=== PATIENT | female | born 1965 | race African-American/Black ===

== ENCOUNTER 2016-08-31 22:45 | Emergency (ER) | payer SELFPAY ==
[~2016-08-31] VITALS: Ht 167.6 cm; Wt 70.3 kg
[2016-08-31 22:54] VITALS: BP 162/99
--- NOTE | 2016-08-31 22:54 | Emergency Room Report ---
History of Present Illness General Chief Complaint: Alcohol Intoxication Source: EMS Present Illness HPI This is a proximally 52-year-old female who came in as a Devika Valdez. She presents with alcohol intoxication. She was sleeping outside of a [employer]. Bystander called 911. Per EMS, she is familiar to them but they do not know her name. She's been sent to hospital for alcohol intoxication. To me she also familiar but I am under able to recall her name. Is no trauma. Unable to get any other history from the patient. Allergies: Coded Allergies: UNABLE TO ASSESS (Unverified , 08/31/16) Patient History Past Medical History: see triage record, old chart reviewed, unable to obtain Past Surgical History: unable to obtain Pertinent Family History: unable to obtain Social History: Reports: alcohol use Last Menstrual Period: UNK Now: No Immunizations: other Reviewed Nursing Documentation: PMH: Agreed, PSxH: Agreed Nursing Documentation-PMH Past Medical History Deferred: Pt Cognitively Impaired Past Medical History: Deferred Review of Systems ENT: Denies: ear pain, nose congestion, throat swelling Respiratory: Denies: cough, shortness of breath Cardiovascular: Denies: chest pain, palpitations Gastrointestinal: Denies: abdominal pain, diarrhea, nausea, vomiting Musculoskeletal: Denies: back pain, joint pain Skin: Denies: rash Neurological: Denies: headache, numbness Endocrine: Denies: increased thirst, increased urine Hematologic/Lymphatic: Denies: easy bruising All Other Systems: limited - The secondary to her intoxication Physical Exam Vital Signs Date Time Temp Pulse Resp B/P Pulse Ox O2 Delivery O2 Flow Rate FiO2 08/31/16 22:40 98.2 99 16 162/99 98 Room Air vitals show hypertension Sp02 EP Interpretation: reviewed, normal General Appearance: well appearing, no apparent distress, other - Sleeping Head: normocephalic, atraumatic Eyes: bilateral eye EOMI, bilateral eye PERRL ENT: hearing grossly normal, normal pharynx Neck: full range of motion, supple, no meningismus Respiratory: chest non-tender, lungs clear, normal breath sounds Cardiovascular #1: regular rate, rhythm, no murmur Gastrointestinal: normal bowel sounds, non tender, no mass, no organomegaly, no bruit, non-distended Musculoskeletal: back normal, normal range of motion Neurologic: grossly normal Psychiatric: mood/affect normal Skin: warm/dry Medical Decision Making Diagnostic Impression: Primary Impression: Acute alcoholic intoxication Qualified Codes: F10.120 - Alcohol abuse with intoxication, uncomplicated ER Course Patient with alcohol intoxication. There is no trauma. We will discharge home when she is more awake. Will reassess get better history. .Patient is now awake. She able to give her name. Not suicidal or homicidal. Does not want to stay. We'll discharge home. Last Vital Signs Date Time Temp Pulse Resp B/P Pulse Ox O2 Delivery O2 Flow Rate FiO2 08/31/16 22:40 98.2 99 16 162/99 98 Room Air Status: improved Disposition: HOME, SELF-CARE Condition: Stable Patient Instructions: Alcohol Intoxication, [id number] Additional Instructions: Abstain from alcohol and drugs. Followup with your Dr. 7 days. Return if worse. MYESHA WILKINS M.D. August 31, 2016 22:54
[2016-09-01 00:54] VITALS: BP 159/95
[2016-09-01 02:54] VITALS: BP 154/95
[2016-09-01 04:54] VITALS: BP 157/86
[2016-09-01 05:15] VITALS: BP 157/86
== END 2016-09-01 05:15 | disposition home or self-care (01) ==
LOC: EDBD 22:45 → EMR 22:59
DX: F10.120 Alcohol abuse with intoxication, uncomplicated (principal)
CPT/HCPCS: 99284